=== PATIENT | male | born 2000 | race Caucasian/White ===

== ENCOUNTER 2024-11-26 22:38 | Emergency (ER) | payer MEDICAID ==
[~2024-11-26] VITALS: Ht 170.2 cm; Wt 60.9 kg
[2024-11-26 22:52] VITALS: TEMP 97.9
[2024-11-26 23:35] LABS: BASOPHILS % (AUTO) 0.1 % (0-1); EOSINOPHILS # (AUTO) 0.1 X10'3 (0-0.9); EOSINOPHILS % (AUTO) 0.7 % (0-6); HEMATOCRIT 57.1 % (42.0-52.0); LYMPHOCYTES # (AUTO) 0.4 X10'3 (1.1-4.8); LYMPHOCYTES % (AUTO) 2.4 % (21-51); MEAN CORPUSCULAR HEMOGLOBIN 30.8 PG (27.0-31.0); MEAN CORPUSCULAR VOLUME 93.4 FL (78-98); MEAN PLATELET VOLUME 7.3 FL (7.4-10.4); MONOCYTES # (AUTO) 1.4 X10'3 (0-0.9); MONOCYTES % (AUTO) 8.8 % (2-12); PLATELET COUNT 364 X10'3 (140-440); RED BLOOD COUNT 6.11 X10'6 (4.70-6.10); WHITE BLOOD COUNT 15.9 X10'3 (4.5-11.0)
[2024-11-26 23:44] LABS: HEMOGLOBIN 18.8 g/dl (14.0-17.9)
[2024-11-26 23:53] LABS: ALANINE AMINOTRANSFERASE 29 U/L (12-78); ALBUMIN 4.9 G/DL (3.4-5.0); ALBUMIN/GLOBULIN RATIO 1.2 (1.1-1.5); ALKALINE PHOSPHATASE 91 IU/L (46-116); ANION GAP 15 (8-16); ASPARTATE AMINO TRANSFERASE 21 U/L (10-37); BILIRUBIN,TOTAL 0.5 MG/DL (0.1-1.0); BLOOD UREA NITROGEN 23 MG/DL (7-18); BUN/CREATININE RATIO 13.9 (10.0-20.0); CALCIUM 9.2 MG/DL (8.5-10.1); CHLORIDE 99 MMOL/L (99-107); CREATININE 1.65 MG/DL (0.60-1.10); GLUCOSE 172 MG/DL (70-104); LIPASE 25 U/L (16-77); SODIUM 139 MMOL/L (135-145); TOTAL CARBON DIOXIDE 24.7 MMOL/L (24-32); eCRCL 58 ML/MIN; eGFR 51 ML/MIN
[2024-11-27] MEDS ORDERED: iohexol 300mg/ml 100ml inj. ONE
[2024-11-27] MEDS: ketorolac trometh 15mg/ml vial 15 MG/ML ML IV ONE (00:29)
[2024-11-27] MEDS: normal saline 1000ml 1,000 ML IV ONE ×2 (00:29→00:30)
[2024-11-27] MEDS: ondansetron/PF 4mg/2ml inj IV ONE (00:29)
[2024-11-27 02:15] LABS: BILIRUBIN,URINE NEGATIVE (Neg); CLARITY,URINE CLEAR (Clear); COLOR,URINE YELLOW (Yellow); GLUCOSE, URINE NEGATIVE (Neg); KETONES,URINE NEGATIVE (Neg); LEUKOCYTE ESTERASE ,URINE NEGATIVE (Neg); NITRITES, URINE NEGATIVE (Neg); OCCULT BLOOD,URINE NEGATIVE (Neg); PROTEIN,URINE NEGATIVE (Neg); UROBILINOGEN,URINE 0.2 E.U/dL (0.2-1.0)
[2024-11-27] MEDS ORDERED: DICY20TA17 PO (02:21)
[2024-11-27] MEDS ORDERED: ONDA-243 PO (02:21)
[2024-11-27 02:34] LABS: UA COLLECTION TYPE CLN CATCH MIDSTREAM
[2024-11-27 02:53] VITALS: BP 93/62; PULSE 78; RESP 16; O2SAT 98
== END 2024-11-27 02:58 | disposition home or self-care (01) ==
LOC: ER 22:40
DX: K52.9 Noninfective gastroenteritis and colitis, unspecified (principal); Z88.1 Allergy status to other antibiotic agents
CPT/HCPCS: 36415; 74177; 80053; 81003; 83690; 85025; 96361; 96374; 96375; 99285; J1885; J2405; J7030; Q9967

== ENCOUNTER 2025-03-26 13:44 | Emergency (ER) | payer MEDICAID ==
[~2025-03-26] VITALS: Ht 170.2 cm; Wt 60.0 kg
[~2025-03-26 13:44] MED LIST: DICY20TA17 PO; ONDA-243 PO
[2025-03-26] MEDS ORDERED: ORPH100T4 PO (15:13)
[2025-03-26] MEDS ORDERED: LIDO700A47 TOP (15:13)
--- NOTE | 2025-03-26 15:16 | Physician Documentation ---
History of Present Illness ~ Chief Complaint: Neck pain Stated Complaint: NECK PAIN Time Seen by MD: 14:22 OK to notify your PCP?: Yes Source: patient Mode of Arrival: POV Exam Limitations: no limitations HPI 24-year-old male presents for right neck pain which extends down along the right trapezius muscle for the past 3-4 days. He states that he does not remember injuring himself he just woke up and had this pain. He does report that it feels better when he massages it and the pain is manageable although when he has muscle spasms that is very painful. He took some left over Flexeril as well as some ibuprofen around noon before coming in with little relief. He denies any recent illness, fevers, confusion, headache, vision disturbances. Medication Reconciliation Allergies: Coded Allergies: amoxicillin (Verified Allergy, Unknown, 11/26/24) Scheduled Dicyclomine HCl (Dicyclomine HCl), 1 TAB PO BID Lidocaine (Lidocaine), 1 PATCH TOP DAILY Scheduled PRN ONDANSETRON ODT 4mg tablet (Ondansetron Odt), 1 TAB PO Q6H PRN PRN for nausea/vomiting Orphenadrine Citrate (Norflex), 1 TAB PO Q12H PRN PRN for pain Past Medical History Smoking Status: Never smoker Review of Systems All Other Systems at this time: Reviewed and Negative Physical Exam Vital Signs: RN Vital Signs have been reviewed: Yes, Temperature: 98.4, Source: Oral, Heart Rate: 72, Respiratory Rate: 18, BP: 106/73, Pulse Oximetry: 100, Weight: 60.000 Pulse Oximetry Reflects: adequate oxygenation Physical Exam General: Alert, no distress. HEENT: No injection, moist mucous membranes. Neck: No cervical lymphadenopathy. Full range of motion of neck although it is painful to turn head to the left side. Tenderness to palpation along muscles of neck on right side. No midline tenderness or step-offs. No pain down to thorac ic region. Respiratory: No respiratory distress, equal chest rise and fall. Chest: No accessory muscle use. Cardiovascular: Regular rate and rhythm. Gastrointestinal: Nondistended. Extremities: Normal range of motion, no deformity. Neurologic: Oriented x4. Psychiatric: Normal mood and affect. Skin: Normal color, warm and dry. 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 He does not have any midline tenderness or other symptoms that would be concerning. Does not have any cervical lymph at lymphadenopathy. He reports that it feels better when he is rubbing the muscle as the muscle just feels very tight. He does have some muscle spasms and states that that is quite painful. He had some leftover Flexeril 7.5mg which he took as well as some ibuprofen with little relief around noon prior to arrival. For this reason I gave him a lidocaine patch and to be applied directly at the affected area as well as some Tylenol while in our department. I sent him home with a prescription for more lidocaine patches as well as a prescription for Norflex. I discussed that he should stop taking the Flexeril and take the Norflex only as he can not take 2 skeletal muscle relaxers at the same time. He verbalizes an understands these instructions. He should return back here for any new or worsening symptoms and follow up his primary care provider within the next week. Differential Dx:Considerations: Include: Discitis, DJD, Meningitis, Vertebral artery dissect. Departure Disposition: HOME / SELF CARE / HOMELESS Impression: Primary Impression: Trapezius muscle spasm Condition: Stable Additional Instructions: He should return back here for any new or worsening symptoms and follow up his primary care provider within the next week. As discussed you can continue to use Tylenol [id number] and ibuprofen for pain relief. I have prescribed lidocaine patches that you can place for 12 hours at a time as well as Norflex as a muscle relaxer. As discussed do not take Norflex or Flexeril at the same time as they are both skeletal muscle relaxers so stopped taking the Flexeril and take the Norflex only and start this after 8 p.m. tonight. Referrals: NO PRIMARY CARE PROVIDER (PCP) Prescriptions Orphenadrine Citrate (Norflex) 100 Mg Tablet.sa 1 TAB PO Q12H PRN PRN for pain for 10 Days, #20 TAB 0 Refills Prov: CLEOPATRA DEAL 03/26/25 Lidocaine (Lidocaine) 5 % Adh..patch 1 PATCH TOP DAILY for 10 Days, #10 PATCH 0 Refills Prov: CLEOPATRA DEAL 03/26/25 Education Educated: Patient Educated regarding: diagnosis, treatment, prognosis, need for follow up Additional Comment Medical Screen Exam This patient recieved a medical screening examination. After reviewing the individual's medical complaints with presenting symptoms and performing an appropriate physical examination, it was determined that no immediate life- threatening emergency medical condition is present. This individual is also not a women having contractions. Signature Scribe Signature: . Attestation: Scribed for Cleopatra Deal by Cleopatra Quinones NP . 03/27/25 00:44 Parts of this note were created using [employer] voice recognition software program. While efforts were made to correct any mistakes made by this voice recognition software program, nonsensical phrases may remain in this note. In addition, there may be errors and syntax, grammar, content and spelling. CLEOPATRA DEAL Mar 26, 2025 15:16
[2025-03-26 15:22] VITALS: BP 110/72; PULSE 68; RESP 16; TEMP 98.4; O2SAT 99
== END 2025-03-26 15:25 | disposition home or self-care (01) ==
LOC: ER 13:44
DX: M62.830 Muscle spasm of back (principal); Z88.0 Allergy status to penicillin
CPT/HCPCS: 99283